=== PATIENT | male | born 1995 | race Two or more races ===

== ENCOUNTER 2020-05-13 13:09 | Outpatient (REF) | payer OTHER, SELFPAY | END 2020-05-13 13:10 | disposition home or self-care (01) | LOC: HO.LAB 13:09 | PROVIDERS: Visit Provider Internal Medicine | DX: Z20.828 Contact with and (suspected) exposure to other viral communicable diseases (principal) | CPT/HCPCS: 87635 ==

== ENCOUNTER 2021-06-25 16:23 | Emergency (ER) | payer OTHER, SELFPAY ==
[2021-06-25 17:15] VITALS: BP 123/57; PULSE 92; RESP 16; TEMP 37.4; O2SAT 100
--- NOTE | 2021-06-25 17:47 | ED.URI ---
HPI - URI/Sore Throat General Chief Complaint: Upper Respiratory Symptoms Stated Complaint: cough congestion Time Seen by Provider: 06/25/21 17:46 Source: patient Limitations: no limitations History of Present Illness HPI Narrative: Patient presents to the ER complaining of cough and congestion over the past 3 days. Patient is fully vaccinated for COVID-19. Patient has a cough is productive for yellow to green sputum at times. Family member has similar symptoms at home. No known COVID-19 exposure. Patient does have a tobacco history. Patient denies asthma diabetes. Patient denies fever chills nausea vomiting. Patient also denies chest pain symptoms are [id number] no other complaints at this time Related Data Allergies Allergy/AdvReac Type Severity Reaction Status Date / Time No Known Allergies Allergy Verified 06/25/21 17:52 Review of Systems Constitutional: Constitutional: Denies body ache(s), Denies chills, Denies fatigue, Denies fever(s), Denies headache(s) and Denies weakness ENT: Denies headache(s), Reports nasal congestion, Reports nasal discharge, Denies neck pain, Denies nose pain and Denies sore throat Cardiovascular: Cardiovascular: Denies chest pain and Denies dyspnea Respiratory: Respiratory: Reports cough and Denies dyspnea Comments: Sputum is green and yellow Gastrointestinal: Gastrointestinal: Denies diarrhea, Denies nausea and Denies vomiting Musculoskeletal: Musculoskeletal: Denies back pain, Denies muscle weakness and Denies neck pain Neurologic: Denies headache(s) and Denies weakness Endocrine: Endocrine: Denies fatigue PMF Past Medical History Attestation statement: The following information was validated with the patient. Social History Social History Advance Directives: No Advance Directives Information Provided: No Physical Exam Vital Signs: Vital Signs: Last Vital Signs Temp 99.4 F 06/25/21 17:15 Pulse 92 06/25/21 17:15 Resp 16 06/25/21 17:15 BP 123/57 L 06/25/21 17:15 Pulse Ox 100 06/25/21 17:15 BMI result Body Mass Index 20.0 vital signs have been reviewed as normal and appeared to be correct. Blood pressure normal. Heart rate normal. Respiration rate normal. Temperature normal. Oxygen saturation normal. Appearance: Alert. Oriented X3. No acute distress. Head: Normal external exam. Normocephalic. Atraumatic. Eyes: PERRLA. EOMI. Conjunctiva and sclera normal. Eyelids normal. ENT: Pharynx normal. Uvula midline. Moist mucous membranes. No evidence of peritonsillar abscess no trismus Neck: Soft full range of motion, no JVD CVS: Heart regular rate and rhythm no murmurs and rubs Respiratory: Breath sounds slightly coarse no accessory muscle use Back: Full range of motion noted. Skin: Skin warm and dry no ecchymosis no rashes noted Extremities: No lower extremity edema. Extremities exhibit normal range of motion. Extremities nontender. Neuro: Oriented X 3. No motor deficit. No sensory deficit. Reflexes normal. Course Course Course Narrative: Acute bronchitis Viral URI COVID-19 Sinusitis Pharyngitis COVID-19 swab obtained. O2 sat on room air is 100% low-grade temp at 99.4?. Otherwise vital signs are stable 6:37 p.m. COVID-19 test is negative MDM - URI/Sore Throat Lab Data Labs: Lab Results 06/25/21 Range/Units 17:53 COVID-19 (TAY) Negative (Negative) COVID-19 Clin Com See Note Discharge Plan Discharge Clinical Impression: Upper respiratory infection Qualifiers: URI type: unspecified viral URI Qualified Code(s): J06.9 - Acute upper respiratory infection, unspecified Patient Disposition: Home, Self-Care Instructions: Upper Respiratory Infection (ED) Additional Instructions: COVID-19 test is negative Increase fluids rest Stand Alone Forms: Work/School Release Print Language: [place]
[2021-06-25 18:35] LABS: COVID-19 Test Negative (Negative)
== END 2021-06-25 19:12 | disposition home or self-care (01) ==
PROVIDERS: Physician Assistant; Emergency Provider Emergency Medicine
DX: J06.9 Acute upper respiratory infection, unspecified (principal); Z20.822 Contact with and (suspected) exposure to COVID-19; F17.200 Nicotine dependence, unspecified, uncomplicated
CPT/HCPCS: 36415; 87635; 99283